=== PATIENT | female | born 1960 | race Caucasian/White ===

== ENCOUNTER → 2016-07-30 | Outpatient (CLI) | payer OTHER | LOC: FIMAGING 13:17 | PROVIDERS: ATTEND Family Medicine | DX: D25.9 Leiomyoma of uterus, unspecified (principal); N93.8 Other specified abnormal uterine and vaginal bleeding; N95.9 Unspecified menopausal and perimenopausal disorder ==

== ENCOUNTER 2016-09-02 06:32 | Day surgery (SDC) | payer OTHER ==
[2016-09-02] MEDS ORDERED: SILVER NITRATE APPLICATOR 1 APPL TP ONE (06:56)
[2016-09-02] MEDS ORDERED: LR 1,000 ML IV ONE (07:04)
[2016-09-02] MEDS ORDERED: MIDAZOLAM 2 MG/2 ML VIAL ONE ×2 (07:43→07:47)
[2016-09-02] MEDS ORDERED: fentaNYL 100 MCG/2 ML INJ ONE (07:47)
[2016-09-02] MEDS ORDERED: PROPOFOL/EMULSION 500 MG/50 ML BOTTLE IV ONE (07:48)
[2016-09-02] MEDS ORDERED: LIDOCAINE 1% 30 ML SDV ONE (08:21)
[2016-09-02] MEDS ORDERED: PROPOFOL 200 MG/20 ML VIAL ONE (08:49)
[2016-09-02] MEDS ORDERED: ONDANSETRON 4 MG/2 ML VIAL ONE (08:51)
[2016-09-02] MEDS ORDERED: DEXAMETHASONE 4 MG/ML VIAL ONE (08:51)
--- NOTE | 2016-09-02 10:19 | GOP ---
[f rep st] OPERATIVE REPORT DATE OF OPERATION: 09/02/2016 SURGEON: Henna Vargas MD ANESTHESIA: MAC. ANESTHESIOLOGIST: Meera Funez DO. PREOPERATIVE DIAGNOSIS: 1. Postmenopausal bleeding. 2. Thickened endometrial stripe. POSTOPERATIVE DIAGNOSIS: Submucosal fibroids. PROCEDURE PERFORMED: 1. Diagnostic hysteroscopy with hysteroscopic resection of submucosal fibroids. 2. Dilation and curettage. FINDINGS: Elongated cervix with several submucosal fibroids and possibly submucosal polyps and norm al tubal ostia. ESTIMATED BLOOD LOSS: Minimal. INDICATIONS: The patient is a 56-year-old who presented to Dr. Zina Monreal with postmenopausal b leeding. Ultrasound showed a 15 mm endometrial stripe. Recommendation for endometrial biopsy. Thi s was performed by Dr. Monreal, and insufficient tissue noted. Patient has a known history of very otilia notic cervix so recommendation was to do outpatient hysteroscopic evaluation and resection of the in tracavitary tissue. DESCRIPTION OF PROCEDURE: With informed consent signed, patient taken to the operating room and kenneth davide under anesthesia without complication. Bladder previously emptied. Prepped and draped in the u sual sterile fashion. Tenaculum placed on the anterior lip of the cervix, and cervix injected with 10 cc of 1% lidocaine for a paracervical block. The cervix was very gently dilated up to 9.5 mm, an d this was somewhat time consuming as she has such a stenotic cervix. Once she had adequate dilatio n, the hysteroscope was placed using normal saline as a filling medium, and a [employer] ear rotary blade placed into the endometrium and resection of all the endometrial tissue done withou t complication. This took about 10 minutes. Once the endometrium was clear of tissue and hemostati c, the hysteroscope was removed. The patient placed in the supine position, awakened in the operati ng room, taken to recovery room in stable condition tolerating the procedure well. COMPLICATIONS: None. /[id number]/MODL
== END 2016-09-02 10:20 | disposition home or self-care (01) ==
LOC: FSGY 06:32
PROVIDERS: ATTEND Obstetrics & Gynecology Gynecology
PROC: 0UDB8ZX Extraction of Endometrium, Via Natural or Artificial Opening Endoscopic, Diagnostic (ICD-10-PCS; principal; 2016-09-02 08:00)
DX: N84.0 Polyp of corpus uteri (principal); N95.0 Postmenopausal bleeding; N85.00 Endometrial hyperplasia, unspecified
CPT/HCPCS: 58558; C1782; J1100; J2250; J2405; J2704; J3010